=== PATIENT | female | born 1970 | race American Indian/Alaskan Native ===

== ENCOUNTER 2018-11-06 10:11 | Emergency (ER) | payer MEDICAID ==
[2018-11-06 11:06] LABS: Basophils # (Auto) 0.1 K/mm3 (0.0-0.1); Eosinophils # (Auto) 0.3 K/mm3 (0.0-0.4); Eosinophils % (Auto) 3.1 % (0.0-4.3); Monocytes # (Auto) 0.6 K/mm3 (0.0-0.8); Monocytes % (Auto) 7.2 % (0.0-7.3)
[2018-11-06 11:10] LABS: Basophils % (Auto) 0.6 % (0.0-1.8); Hematocrit 28.9 % (30.3-42.9); Lymphocytes % (Auto) 23.5 % (13.4-35.0); Mean Corpuscular HGB Conc 33 % (30-34); Mean Corpuscular Volume 79 fl (79-97); Red Blood Count 3.65 M/mm3 (3.65-5.03); Red Cell Distribution Width 15.3 % (13.2-15.2)
[2018-11-06 11:14] LABS: Platelet Count 270 K/mm3 (140-440)
[2018-11-06 11:15] LABS: Hemoglobin 9.5 gm/dl (10.1-14.3)
[2018-11-06 11:26] LABS: Alanine Aminotransferase 15 units/L (7-56); Albumin 3.5 g/dL (3.9-5); BUN/Creatinine Ratio 14; Blood Urea Nitrogen 10 mg/dL (7-17); Calcium 8.5 mg/dL (8.4-10.2); Hemolysis Index 29
--- NOTE | 2018-11-06 11:37 | Emergency Department Report ---
HPI - General Chief Complaint: Abdominal Pain Time Seen by Provider: 11/06/18 11:13 - HPI HPI: Room 22 The patient is a 48-year-old female presenting with a chief complaint of abdominal pain. The patient states her symptoms began 2 days ago with a cons tant sharp midepigastric pain. Patient is to nausea but denies vomiting. Patient states she had one day of diarrhea when her symptoms began 2 days ago. Patient denies fever, dysuria or hematuria. The patient went to her primary physician when turned administered Toradol. The patient states her pain decreased from an 8/10 to a 5/10. The patient states she contacted her bariatric surgeon (Dr. Smith's office) and the on-call physician advised her to come to the ED for further evaluation Location: Abdomen Duration: [See above] Quality: Sharp Severity: 5/10 Modifying factors: [see above] Context: [see above] Mode of transportation: [not driving] ED Past Medical Hx - Past Medical History Hx Hypertension: Yes Hx Diabetes: Yes - Surgical History Hx Cholecystectomy: Yes Additional Surgical History: gastric bypass, cardiac cath, C/S, knee - Social History Smoking Status: Never Smoker Substance Use Type: None - Medications Home Medications: Home Medications Medication Instructions Recorded Confirmed Last Taken Type Ciprofloxacin HCl [Ciprofloxacin 500 mg PO Q12HR #14 tab 11/06/18 Unknown Rx TAB] Famotidine [Pepcid] 20 mg PO BID #20 tablet 11/06/18 Unknown Rx HYDROcodone/APAP 5-325 [[place] 1 - 2 each PO Q6HR PRN #10 tablet 11/06/18 Unknown Rx 5/325] ED Review of Systems ROS: Stated complaint: STOMACH PAIN Other details as noted in HPI Physical Exam - Physical Exam Vital Signs: Vital Signs 11/06/18 10:24 Temperature 98.3 F Pulse Rate 71 Respiratory 20 Rate Blood Pressure 151/93 O2 Sat by Pulse 99 Oximetry ED Course Vital Signs 11/06/18 10:24 Temperature 98.3 F Pulse Rate 71 Respiratory 20 Rate Blood Pressure 151/93 O2 Sat by Pulse 99 Oximetry - Consultations Consultation #1: 11/06/18 11:37 Dr. Luis wesley 11/06/18 11:43 Case discussed with on-call physician Dr. Temple 11/06/18 15:16 CT results and plan discussed with Dr. Temple ED Medical Decision Making - Lab Data Result diagrams: 11/06/18 10:50 11/06/18 10:50 Laboratory Tests 11/06/18 11/06/18 11/06/18 10:31 10:50 10:50 WBC 8.4 RBC 3.65 Hgb 9.5 L Hct 28.9 L MCV 79 MCH 26 L MCHC 33 RDW 15.3 H Plt Count 270 Lymph % (Auto) 23.5 [place] % (Auto) 7.2 Eos % (Auto) 3.1 Baso % (Auto) 0.6 Lymph # 2.0 [place] # 0.6 Eos # 0.3 Baso # 0.1 Add Manual Diff Complete Seg Neutrophils % 65.9 Seg Neutrophils # 5.5 Sodium 143 Potassium 3.9 Chloride 105.4 Carbon Dioxide 25 Anion Gap 17 BUN 10 Creatinine 0.7 Estimated GFR > 60 BUN/Creatinine Ratio 14 Glucose 162 H POC Glucose 198 H Calcium 8.5 Total Bilirubin 0.30 AST 21 ALT 15 Alkaline Phosphatase 72 Total Protein 6.7 Albumin 3.5 L Albumin/Globulin Ratio 1.1 Lipase HCG, Qual Urine Color Urine Turbidity Urine pH Ur Specific [place] Urine Protein Urine Glucose (UA) Urine Ketones Urine Blood Urine Nitrite Urine Bilirubin Urine Urobilinogen Ur Leukocyte Esterase Urine WBC (Auto) Urine RBC (Auto) U Epithel Cells (Auto) Urine Bacteria (Auto) Urine Mucus 11/06/18 11/06/18 11/06/18 10:50 10:50 11:07 WBC RBC Hgb Hct MCV MCH MCHC RDW Plt Count Lymph % (Auto) [place] % (Auto) Eos % (Auto) Baso % (Auto) Lymph # [place] # Eos # Baso # Add Manual Diff Seg Neutrophils % Seg Neutrophils # Sodium Potassium Chloride Carbon Dioxide Anion Gap BUN Creatinine Estimated GFR BUN/Creatinine Ratio Glucose POC Glucose Calcium Total Bilirubin AST ALT Alkaline Phosphatase Total Protein Albumin Albumin/Globulin Ratio Lipase 23 HCG, Qual Negative Urine Color Yellow Urine Turbidity Cloudy Urine pH 5.0 Ur Specific [place] 1.015 Urine Protein <15 mg/dl Urine Glucose (UA) Neg Urine Ketones Neg Urine Blood Neg Urine Nitrite Neg Urine Bilirubin Neg Urine Urobilinogen < 2.0 Ur Leukocyte Esterase Lg Urine WBC (Auto) 28.0 H Urine RBC (Auto) 1.0 U Epithel Cells (Auto) 6.0 Urine Bacteria (Auto) 1+ Urine Mucus 2+ - Radiology Data Radiology results: report reviewed (CT abdomen and pelvis), image reviewed (CT abdomen and pelvis) [facility] [address] [place] [address] Cat Scan Report Signed Patient: JUANY MANCUSO MR#: [id number] : 1970 Acct:[id number] Age/Sex: 48 / F ADM Date: 11/06/18 Loc: ED Attending Dr: Ordering Physician: ARMANDO NELSON MD Date of Service: 11/06/18 Procedure(s): CT abdomen pelvis wo con Accession Number(s): [id number] cc: ARMANDO NELSON MD CT abdomen and pelvis without contrast: Abdominal pain. Transverse images were obtained low chest and ischium with coronal and sagittal 2-D reformatted images. The lung bases are clear. The gallbladder has been resected. There are surgical clips around the fundus of the stomach and a portion of the proximal small bowel and what appears to be a bypass anastomosis. The pancreas is unremarkable as are the adrenal glands. The kidneys are also unremarkable except for a tiny nonobstructive appearing calculus in the mid left kidney. The contrast is predominantly identified in the proximal and mid colon with little residual in the small bowel. There no obvious abnormalities of the bowel or mesentery. There is a large mass which appears to be arising from the dome of the uterus. It measures approximately 19 cm wide by 20 cm high and 11 cm deep. There are some scattered calcifications. The pelvis is not otherwise remarkable. There are degenerative discogenic and bony changes noted at L5-S1. Impressions: 1. Large uterine fibroid. 2. Multiple surgical changes as described. 3. Nonobstructing small left renal calculus. Transcribed By: TANYA Dictated By: SOUTH MOULTON MD Electronically Authenticated By: SOUTH MOULTON MD Signed Date/Time: 11/06/181439 DD/ 25 TD/TT: 11/06/18 144 - Differential Diagnosis small bowel obstruction, gastritis, peptic ulcer disease Critical care attestation.: If time is entered above; I have spent that time in minutes in the direct care of this critically ill patient, excluding procedure time. ED Disposition Clinical Impression: Acute abdominal pain, UTI (urinary tract infection) Disposition: - TO HOME OR SELFCARE Is pt being admited?: No Does the pt Need Aspirin: No Condition: Stable Instructions: Abdominal Pain (ED) Additional Instructions: Return to the emergency department immediately should you develop worsening symptoms, fever, inability to tolerate food or liquid or any other concerns. Prescriptions: Ciprofloxacin HCl [Ciprofloxacin TAB] 500 mg PO Q12HR #14 tab HYDROcodone/APAP 5-325 [[place] 5/325] 1 - 2 each PO Q6HR PRN #10 tablet PRN Reason: Pain Famotidine [Pepcid] 20 mg PO BID #20 tablet Referrals: DION FUNK MD [Primary Care Provider] - 3-5 Days RIAZ VILA MD [Staff Physician] - 3-5 Days (Dr. Vila is a test man. Please follow-up with him for further evaluation) Time of Disposition: 15:18
[2018-11-06 12:35] LABS: Bacteria,Urine 1+ /HPF (Negative); Bilirubin,Urine NEG (Negative); Blood,Urine NEG (Negative); Color,Urine Yellow (Yellow); Mucus,Urine 2+ /HPF; Protein,Urine <15 mg/dL mg/dL (Negative); Urobilinogen,Urine < 2.0 mg/dL (<2.0)
--- NOTE | 2018-11-06 15:01 | Cat Scan Report ---
CT abdomen and pelvis without contrast: Abdominal pain. Transverse images were obtained low chest and ischium with coronal and sagittal 2-D reformatted images. The lung bases are clear. The gallbladder has been resected. There are surgical clips around the fundus of the stomach and a portion of the proximal small bowel and what appears to be a bypass anastomosis. The pancreas is unremarkable as are the adrenal glands. The kidneys are also unremarkable except for a tiny nonobstructive appearing calculus in the mid left kidney. The contrast is predominantly identified in the proximal and mid colon with little residual in the small bowel. There no obvious abnormalities of the bowel or mesentery. There is a large mass which appears to be arising from the dome of the uterus. It measures approximately 19 cm wide by 20 cm high and 11 cm deep. There are some scattered calcifications. The pelvis is not otherwise remarkable. There are degenerative discogenic and bony changes noted at L5-S1. Impressions: 1. Large uterine fibroid. 2. Multiple surgical changes as described. 3. Nonobstructing small left renal calculus.
[2018-11-06 15:36] VITALS: BP 140/66
== END 2018-11-06 15:33 | disposition home or self-care (01) ==
LOC: ED 10:11
DX: N39.0 Urinary tract infection, site not specified (principal); I10 Essential (primary) hypertension; E11.9 Type 2 diabetes mellitus without complications; Z90.49 Acquired absence of other specified parts of digestive tract
CPT/HCPCS: 36415; 74176; 80053; 81001; 82962; 83690; 84703; 85025; 99284